=== PATIENT | female | born 1975 | race Caucasian/White ===

== ENCOUNTER → 2017-11-18 | Outpatient (CLI) | payer OTHER | LOC: CIMAGING 08:13 | PROVIDERS: ATTEND Family Medicine | DX: E05.90 Thyrotoxicosis, unspecified without thyrotoxic crisis or storm (principal) | CPT/HCPCS: 76536-PO ==

== ENCOUNTER 2019-03-06 20:58 | Emergency (ER) | payer BC, OTHER ==
[2019-03-06] MEDS ORDERED: ONDANSETRON 4 MG/2 ML VIAL ONE (21:18)
[2019-03-06] MEDS ORDERED: ONDANSETRON 4 MG/2 ML VIAL IVP ONE (21:21)
[2019-03-06] MEDS ORDERED: KETOROLAC 15 MG/1 ML SDV IVP ONE ×2 (21:24→21:43)
[2019-03-06] MEDS ORDERED: HYOSCYAMINE SULFATE 0.125 MG TAB PO ONE ×2 (21:26→22:17)
--- NOTE | 2019-03-06 21:29 | EDPHY ---
H & P Stated Complaint: bloating,nausea,abdominal pain for 2 days Source: Patient Exam Limitations: No limitations - Personal History LMP (Females 10-55): Unknown Current Tetanus Diphtheria and Acellular Pertussis (TDAP): Yes - Medical/Surgical History Hx Asthma: No Hx Chronic Respiratory Disease: No Hx Diabetes: No Hx Cardiac Disease: No Hx Renal Disease: No Hx Cirrhosis: No Hx Alcoholism: No Hx HIV/AIDS: No Hx Splenectomy or Spleen Trauma: No Other PMH: rm,endometriosis - Family History Significant Family History: No pertinent family hx - Social History Smoking Status: Never smoked Alcohol Use: Rarely Drug Use: None <González Chacon - Last Filed: 03/06/19 22:35> <Miah Ferraro - Last Filed: 03/06/19 23:38> Time Seen by Provider: 03/06/19 21:09 HPI/ROS: This patient reports gradual onset of abdominal pain over the past 24 hr that initially felt like was in upper belly but since migrated to the right lower quadrant. She describes it as a pressure sensation currently 8/10 intensity worse with movement and bumps in the road on the way here and with movement in general. She has not tried any analgesics for her pain. She notes no other exacerbating factors. She has not had this pain before. She has associated nausea. Her last meal was at 4:30 p.m. Her son drove her here for evaluation by private vehicle. ROS: Constitutional: No fevers. No other complaints HEENT: No URI symptoms or other complaints except otitis media 2 weeks ago that resolved with antibiotic. Patient does recall which antibiotic she was on. Currently no ear pain throat pain or other complaints Pulmonary: No shortness of breath. No cough. Cardiovascular: No chest pain or heart palpitations. GI: She reports mild abdominal distension associated with her symptoms. While she has mild back pain she does not have a sense that is radiating from her abdomen. She reports normal bowel movements. While she has nausea she has had no vomiting. : No urinary symptoms. No vaginal discharge. She is amenorrheic due to endometrial ablation was performed because of endometriosis. 10 point review of symptoms is performed and otherwise negative with exception of pertinent positives and negatives listed in HPI and ROS (González Chacon) - Medical/Surgical History PMH: Cholecystitis with cholecystectomy 5 years ago at [facility]. Exploratory laparotomy for abdominal pain with diagnosis of endometriosis at that time (González Chacon) - Physical Exam Exam: General Appearance: Pleasant 43-year-old female and mild distress due to pain and nausea. Eyes: Pupils equal and round no pallor or injection. ENT, Mouth: Mucous membranes moist. Respiratory: There are no retractions, lungs are clear to auscultation. Cardiovascular: Regular rate and rhythm. Gastrointestinal: Hyperactive bowel sounds. Positive exquisite right lower quadrant tenderness. No clear rebound tenderness. She does have positive Rovsing's. No significant upper belly tenderness at this point. No organomegaly is appreciated. She has a clean dry intact infraumbilical surgical scar. Back: No CVA tenderness Neurological: GCS 15 Skin: Diaphoretic Musculoskeletal: Neck is supple nontender. Extremities are symmetrical, full range of motion. Psychiatric: Mood and affect are normal DIFFERENTIAL DIAGNOSIS: After history and physical exam differential diagnosis was considered for appendicitis, ureteral stone, pyelonephritis, bowel obstruction, diverticulitis, neoplasm, gas cramps, constipation, (González Chacon) Constitutional: Initial Vital Signs Temperature (C) 36.9 C 03/06/19 21:11 Heart Rate 87 03/06/19 21:11 Respiratory Rate 16 03/06/19 21:11 Blood Pressure 127/80 H 03/06/19 21:11 O2 Sat (%) 94 03/06/19 21:11 O2 Delivery Mode Room Air Allergies/Adverse Reactions: codeine Allergy (Verified 03/06/19 21:10) Penicillins Allergy (Verified 03/06/19 21:10) Home Medications: Medication Instructions Recorded Cephalexin [Keflex] 500 mg PO TID #21 cap 03/06/19 Hyoscyamine Sulfate [Levsin, 0.125 - 0.25 mg SL Q6 PRN #20 tab 03/06/19 Hyomax-Sl 0.125 mg (*)] Ondansetron Odt [Zofran Odt] 4 - 8 mg PO Q4PRN PRN #4 tab 03/06/19 Medical Decision Making - Diagnostics Imaging: Discussed imaging studies w/ outside sales consultant Radiologist <González Chacon - Last Filed: 03/06/19 22:35> - Diagnostics Imaging: Discussed imaging studies w/ outside sales consultant Radiologist <Miah Ferraro - Last Filed: 03/06/19 23:38> - Diagnostics Imaging Results: Imaging Impressions Abdomen CT 03/06/19 21:24 Impression: 1. No evidence of acute appendicitis. 2. Normal bowel pattern. No evidence of obstruction or adynamic ileus. Minimal diverticulosis of the sigmoid colon. 3. No free fluid or localized intra-abdominal inflammatory process. 4. Bilateral nephrolithiasis. Findings discussed with Emergency Department physician, GONZÁLEZ CHACON at 03/06/2019 22:20. CT abdomen pelvis with IV contrast-no appendix visualized but no inflammatory changes in the right lower quadrant per Dr. Fenton, radiologist. Mild diverticulosis but no diverticulitis. No hydronephrosis or ureteral stones appreciated. Moderate gas but no evidence of early obstruction per Dr. Fenton , radiologist. I also reviewed these images myself. (González Chacon) ED Course/Re-evaluation: IV normal saline bolus, Zofran 4 mg IV with resolution of nausea Toradol 15 mg without improvement in pain Levsin 0.125 sublingual in addition with minimal improvement-still 7/10. An additional 50 mg of Toradol, 1 mg Dilaudid in 0.125 Levsin were then administered with partial relief. POC CBC and basic metabolic panel here are normal. POC urine dip reveals trace blood, and 1+ leukocytes. In my experience the 1+ leukocytes can translate to a few white cells per high-power field microscopy verses over 50. Given this variability will send this urinalysis to [facility] lab for urine micro - results currently pending. A urine is not performed given her endometrial ablation Discussion: Patient here with a presentation that was clinically concerning for potential appendicitis with the 1 exception exam the patient presented with very hyperactive bowel sounds. She also had some bloating that she complained of. We do not appreciate evidence of bowel obstruction or appendicitis on her imaging and no other significant abnormalities are noted. She may be having severe gas cramps from food intolerance or virus. Counseled regarding this. It is still possible that she could a very early obstruction without vomiting or characteristic radiologic findings. Given her improvement with treatment here will send her home with a trial of Levsin, ibuprofen, Tylenol and a light diet with plan to follow up with primary care physician and/or Gastroenterology. She understands need to return emergency department should she develop any worsening of symptoms despite the treatment plan. At 10:45 p.m. I spoke with the patient who reports still having 6 or 7/10 pain despite previous medications. I explained the option of observation admission and repeat examination in the morning. She is interested in another round of analgesics prior to that decision being made. Will give her a 1 mg Dilaudid dose with plan for disposition decision thereafter. I explained again no red flag findings currently but may warrant observation admission is still isn't getting relief from plan final dose of analgesics here. I also explained that if she is discharged home she will not receive opiate analgesics but rather above outlined plan Levsin and [id number] analgesics. I discussed this case with [facility] emergency physician who is familiar with patient's presentation, workup and current status. A follow- up to finalize disposition after monitoring her response to medication. (González Chacon) 11:30 p.m. the patient continues to have some pain. Her lab work, vital signs and imaging are all completely reassuring. I suspect that she may have passed a kidney stone based on the location of her symptoms and a small amount of blood in her urine. There was no stone seen in the ureter or hydronephrosis or hydroureter however she does have small stones in the kidneys themselves. We discussed this as possible cause for her pain. I again offered admission for observation versus discharge and follow-up 24 hr. She would prefer to go home and sleep in her own bed will return if her symptoms worsen. I agree that this is reasonable. Her son will drive her home. She is asking for stronger nausea medicine. Will treat with a small dose of Haldol. 11:40 p.m. the urine sent to the lab but [place] reveals white cells but not red cells. Will treat the patient with Rocephin for potential urinary tract infection. Otherwise her vitals in lab work look well. She is happy with this plan. She has hives to penicillin but has never had an adverse reaction to cephalosporins. (Miah Ferraro) - Data Points Laboratory Results: 03/06/19 03/06/19 23:01 22:00 POC Sodium 136 mEq/L mEq/L (135-145) POC Potassium 4.4 mEq/L mEq/L (3.3-5.0) POC Chloride 109.0 mEq/L mEq/L (97-110) POC Total CO2 30 mEq/L mEq/L (22-31) POC BUN 15 mg/dL mg/dL (7-23) POC Creatinine 1.2 mg/dL H mg/dL (0.6-1.0) POC Glucose 86 mg/dL mg/dL (70-100) POC Calcium 10.0 mg/dL mg/dL (8.5-10.4) POC Total Bilirubin 0.5 mg/dL mg/dL (0.1-1.4) POC AST 28 IU/L IU/L (14-46) POC ALT 32 IU/L IU/L (9-52) POC Alk Phosphatase 56 IU/L IU/L (38-126) POC Total Protein 7.3 g/dL g/dL (6.3-8.2) POC Albumin 3.8 g/dL g/dL (3.5-5.0) Urine RBC 1-3 /hpf /hpf (0-3) Urine WBC 3-5 /hpf H /hpf (0-3) Ur Epithelial Cells TRACE /lpf /lpf (NONE-1+) Medications Given: Discontinued Medications Haloperidol Lactate (Haldol Injection) 5 mg IVP EDNOW ONE Stop: 03/06/19 23:30 Last Admin: 03/06/19 23:33 Dose: 5 mg Hydromorphone HCl (Dilaudid) 1 mg IVP EDNOW ONE Stop: 03/06/19 22:06 Last Admin: 03/06/19 22:10 Dose: 1 mg Hydromorphone HCl (Dilaudid) 1 mg IVP EDNOW ONE Stop: 03/06/19 22:50 Last Admin: 03/06/19 22:56 Dose: 0.5 mg Hyoscyamine Sulfate (Levsin, Hyomax-Sl) 0.125 mg PO EDNOW ONE Stop: 03/06/19 21:27 Last Admin: 03/06/19 21:29 Dose: 0.125 mg Hyoscyamine Sulfate (Levsin, Hyomax-Sl) 0.125 mg PO EDNOW ONE Stop: 03/06/19 22:18 Last Admin: 03/06/19 22:26 Dose: 0.125 mg Sodium Chloride (Ns) 1,000 mls @ 0 mls/hr IV ONCE ONE; Wide Open PRN Reason: Protocol Stop: 03/06/19 21:36 Last Admin: 03/06/19 21:35 Dose: 1,000 mls Ketorolac Tromethamine (Toradol) 15 mg IVP EDNOW ONE Stop: 03/06/19 21:25 Last Admin: 03/06/19 21:29 Dose: 15 mg Ketorolac Tromethamine (Toradol) 15 mg IVP EDNOW ONE Stop: 03/06/19 21:44 Last Admin: 03/06/19 21:46 Dose: 15 mg Ondansetron HCl (Zofran) 4 mg IVP EDNOW ONE Stop: 03/06/19 21:22 Last Admin: 03/06/19 21:21 Dose: 4 mg Point of Care Test Results: CBC CBC Collection Date 03/06/19 CBC Collection Time 21:17 WBC 6.31 RBC 4.32 HGB 13.7 HCT 40.7 PLT 335 Neut # 2.73 Neut 43.3 LYMPH # 2.75 LYMPH 43.6 MCV 94.2 Chemistry 03/06/19 23:01 POC Sodium 136 mEq/L mEq/L (135-145) POC Potassium 4.4 mEq/L mEq/L (3.3-5.0) POC Chloride 109.0 mEq/L mEq/L (97-110) POC Total CO2 30 mEq/L mEq/L (22-31) POC BUN 15 mg/dL mg/dL (7-23) POC Creatinine 1.2 mg/dL H mg/dL (0.6-1.0) POC Glucose 86 mg/dL mg/dL (70-100) POC Calcium 10.0 mg/dL mg/dL (8.5-10.4) POC Total Bilirubin 0.5 mg/dL mg/dL (0.1-1.4) POC AST 28 IU/L IU/L (14-46) POC ALT 32 IU/L IU/L (9-52) POC Alk Phosphatase 56 IU/L IU/L (38-126) POC Total Protein 7.3 g/dL g/dL (6.3-8.2) POC Albumin 3.8 g/dL g/dL (3.5-5.0) Comprehensive Metabolic Panel CMP Collection Date 03/06/19 CMP Collection Time 23:15 Urine Dip Collection Date 03/06/19 Collection Time 22:00 Specific Violet (1.002-1.030) 1.020 PH (5.0-7.5) 7.5 Leukocytes (Negative) 1+ Nitrites (Negative) Negative Protein (Negative) Negative Glucose (Negative) Negative Ketones (Negative) Negative Urobilnogen (0.2-1.0 EU) 1.0 Bilirubin (Negative) Negative Blood (Negative) Trace Departure <González Chacon C - Last Filed: 03/06/19 22:35> <Miah Ferraro - Last Filed: 03/06/19 23:38> - Departure Disposition: Home, Routine, Self-Care Clinical Impression: Acute abdominal pain Urinary tract infection Qualifiers: Urinary tract infection type: site unspecified Hematuria presence: without hematuria Qualified Code(s): N39.0 - Urinary tract infection, site not specified Condition: Good Instructions: Abdominal Pain (ED), Urinary Tract Infection in Women (ED) Additional Instructions: Diagnosis: Acute abdominal pain Plan: Levsin, ibuprofen Tylenol for pain as needed Zofran for nausea if needed Follow up with your primary care physician and/or Gastroenterology for any ongoing symptoms. Return emergency department for any significant worsening such as onset of vomiting despite Zofran, unbearable pain despite medications or other concerns. Referrals: Mary Lou Sevilla [Primary Care Provider] - As per Instructions Prescriptions: Cephalexin [Keflex] 500 mg PO TID #21 cap Hyoscyamine Sulfate [Levsin, Hyomax-Sl 0.125 mg (*)] 0.125 - 0.25 mg SL Q6 PRN # 20 tab PRN Reason: abdominal cramping Ondansetron Odt [Zofran Odt] 4 - 8 mg PO Q4PRN PRN #4 tab PRN Reason: Vomiting
[2019-03-06] MEDS ORDERED: NS 1,000 ML IV ONE (21:35)
[2019-03-06] MEDS ORDERED: IOPAMIDOL (ISOVUE-300) 100 ML BTL ONE (21:45)
[2019-03-06] MEDS ORDERED: HYDROmorphONE/DILAUDID 2 MG/ML INJ IVP ONE ×2 (22:05→22:49)
[2019-03-06] MEDS ORDERED: HALOPERIDOL LACT 5 MG/ML INJ IVP ONE (23:29)
[2019-03-06] MEDS ORDERED: ONDANSETRON 4MG PREPACK#2 BTL TAKEHOME ONE (23:49)
[2019-03-07 00:30] VITALS: BP 116/74
== END 2019-03-07 00:25 | disposition home or self-care (01) ==
LOC: CED 20:58
DX: N39.0 Urinary tract infection, site not specified (principal); R10.31 Right lower quadrant pain; N20.0 Calculus of kidney; Z90.49 Acquired absence of other specified parts of digestive tract
CPT/HCPCS: 74177-PO; 80053-ER; 85025-QW-ER; 96365-ER; 96375-ER; 99285-ER; J0696; J1170; J1630; J1885; J2405; Q9967

== ENCOUNTER → 2019-03-22 | Outpatient (CLI) | payer BC | LOC: FIMAGING 07:58 | PROVIDERS: ATTEND Physician Assistant Medical | DX: K21.9 Gastro-esophageal reflux disease without esophagitis (principal) ==

== ENCOUNTER 2019-04-26 07:26 | Day surgery (SDC) | payer BC ==
[2019-04-26] MEDS ORDERED: LIDOCAINE 1% 2 ML INJ ID PRN (08:15)
[2019-04-26] MEDS ORDERED: LR 1,000 ML IV ONE (08:15)
[2019-04-26] MEDS ORDERED: LIDOCAINE 1% 2 ML INJ ONE (08:21)
--- NOTE | 2019-04-26 09:10 | PDANEPAE ---
ANE Past Medical History - Cardiovascular History Hx Hypertension: No Hx Arrhythmias: No Hx Chest Pain: No Hx Coronary Artery / Peripheral Vascular Disease: No Hx CHF / Valvular Disease: No Hx Palpitations: No - Pulmonary History Hx COPD: No Hx Asthma/Reactive Airway Disease: No Hx Recent Upper Respiratory Infection: No Hx Oxygen in Use at Home: No Hx Sleep Apnea: No Sleep Apnea Screening Result - Last Documented: Negative - Neurologic History Hx Cerebrovascular Accident: No Hx Seizures: No Hx Dementia: No - Endocrine History Hx Diabetes: No Endocrine History Comment: HYPERTHYROID DOES YEARLY CHECKS - Renal History Hx Renal Disorders: No - Liver History Hx Hepatic Disorders: No Hepatic History Comment: KAYLEE - Neurological & Psychiatric Hx Hx Neurological and Psychiatric Disorders: No - Cancer History Hx Cancer: No - Congenital Disorder History Hx Congenital Disorders: No - GI History Hx Gastrointestinal Disorders: Yes Gastrointestinal History Comment: INTERMITTENT ISSUES WITH NAUSEA. AND GI DISCOMFORT - Chronic Pain History Chronic Pain: Yes (GI) - Surgical History Prior Surgeries: KAYLEE 2013 AT [facility]. ENDOMETROSIS ANE Review of Systems Review of Systems: - Exercise capacity METS (RN): 4 METS ANE Patient History - Allergies Allergies/Adverse Reactions: Penicillins Allergy (Verified 04/26/19 08:27) Hives - Home Medications Home Medications: Jolessa 0.15 mg-0.03 mg Tablet HS 04/25/19 [Last Taken 04/25/19 22:00] Prilosec DAILY 04/25/19 [Last Taken 04/24/19] - NPO status NPO Since - Liquids (Date): 04/25/19 NPO Since - Liquids (Time): 18:00 NPO Since - Solids (Date): 04/25/19 NPO Since - Solids (Time): 18:00 - Smoking Hx Smoking Status: Never smoked ANE Labs/Vital Signs - Vital Signs Blood Pressure: 122/85 Heart Rate: 95 Respiratory Rate: 18 O2 Sat (%): 96 Height: 162.56 cm Weight: 58.06 kg ANE Physical Exam - Airway Neck exam: FROM Mallampati Score: Class 2 Mouth exam: normal dental/mouth exam - Pulmonary Pulmonary: no respiratory distress - Cardiovascular Cardiovascular: regular rate and rhythym - ASA Status ASA Status: II ANE Anesthesia Plan Anesthesia Plan: MAC Total IV Anesthesia: Yes
[2019-04-26] MEDS ORDERED: PROPOFOL/EMULSION 500 MG/50 ML BOTTLE IV ONE (09:25)
[2019-04-26] MEDS ORDERED: fentaNYL 100 MCG/2 ML INJ IVP PRN (09:47)
[2019-04-26] MEDS ORDERED: NALOXONE HCL 0.4 MG/ML INJ IVP PRN (09:47)
[2019-04-26] MEDS ORDERED: INDOMETHACIN 50 MG SUPP PR PRN (09:50)
--- NOTE | 2019-04-26 09:50 | PDGENHP ---
History & Physical Chief Complaint: abdominal pain History of Present Illness: 43 year old female presents for evaluaton of abdominal pain, nausea, and dyspepsia. Feels like her gallbladder symptoms according to her. Pertinent Past, Social, Family History: pMHx: Hyperthyroidism. PSughx: CCY Relevant Physical Exam: HEENT: anicteric. CV: RRR +s1s2. lungs: CTAB. Abd: soft, nt, + bs Cardiorespiratory Assessment: ASA 2
--- NOTE | 2019-04-26 09:57 | POSTANESTH ---
Post Anesthetic Evaluation Cardiovascular Status: Normal, Stable Respiratory Status: Normal, Stable Level of Consciousness/Mental Status: Can Participate in Eval Pain Control: Adequate, Prn Tx Ordered Nausea/Vomiting Control: Adequate, Prn Tx Ordered Complications Possibly Related to Anesthesia: None Noted
[2019-04-26] MEDS ORDERED: NS 500 ML IV SCH (10:00)
[2019-04-26] MEDS ORDERED: ONDANSETRON 4 MG/2 ML VIAL ONE ×2 (10:00→10:12)
[2019-04-26] MEDS: ONDANSETRON 4 MG/2 ML VIAL IVP PRN ×2 (10:01→10:11)
--- NOTE | 2019-04-26 10:14 | GIREPORT ---
[facility] Includes [facility] Surgical Services - Endoscopy Department Patient Name: Devorah Rosenberg Procedure Date: 04/26/2019 9:18 AM Patient Type: Outpatient Attending MD/ ER Physician: Sesar Peña MD Procedure: Upper EUS Indications: Abdominal pain in the right upper quadrant, Dyspepsia, Nausea Patient Profile: 43 year old female presents for evaluation of RUQ/epigastric abdominal pain, nausea, and dyspepsia. Providers: Sesar Peña MD Medicines: Monitored Anesthesia Care Complications: No immediate complications. Estimated blood loss: Minimal. Description of Procedure: After obtaining informed consent, the endoscope was passed under direct vision. Throughout the procedure, the patient's blood pressure, pulse, and oxygen saturations were monitored continuously. The Endoscope was intro duced through the mouth, and advanced to the second part of duodenum. The Endosonoscope was introduced through the mouth, and advanced to the sec ond part of duodenum. The upper EUS was accomplished without difficulty. Th e esophagus, stomach, and duodenum were visualized endosonographically. T he patient tolerated the procedure well. Findings: ENDOSCOPIC FINDING: : The examined esophagus was normal. A hiatal hernia was present. Patchy mildly erythematous mucosa was found in the gastric body and in the gastric antrum. Biopsies were taken with a cold forceps for histology. The examined duodenum was normal. Biopsies for histology were taken wit h a cold forceps for evaluation of celiac disease. ENDOSONOGRAPHIC FINDING: : There was no sign of significant endosonographic abnormality in the com mon bile duct. The maximum diameter of the duct was 5.5 mm. Pancreatic parenchymal abnormalities were noted in the entire pancreas. These consisted of hyperechoic foci. The pancreatic duct had a prominently branched endosonographic appearan ce and had hyperechoic alcala in the entire pancreas. There was no sign of significant endosonographic abnormality in the visualized portion of the liver. No masses were identified. No lymphadenopathy seen. Estimated Blood Loss: Estimated blood loss was minimal. Post Op Diagnosis: - Normal esophagus. - Hiatal hernia. - Erythematous mucosa in the gastric body and antrum. Biopsied. - Normal examined duodenum. Biopsied. - There was no sign of significant pathology in the common bile duct. - Pancreatic parenchymal abnormalities consisting of hyperechoic foci w ere noted in the entire pancreas. - The pancreatic duct had a prominently branched endosonographic appear ance and had hyperechoic alcala in the entire pancreas. - There was no evidence of significant pathology in the visualized port ion of the liver. - Etiology? No obvious cause of symptoms seen. Await biopsy results. St art a trial of dicyclomine. Needs to start a food diary Recommendation: - Discharge patient to home (with escort). - Advance diet as tolerated. - Continue present medications. - Return to GI office in 4 weeks. - Thank you for allowing me to participate in the care of your patient. Attending Participation: I personally performed the entire procedure. Sesar Peña MD Sesar Peña MD 04/26/2019 10:13:43 AM This report has been signed electronicallySesra Peña MD Number of Addenda: 0 Note Initiated On: 04/26/2019 9:18 AM [email or web address]
[2019-04-26] MEDS ORDERED: PROMETHAZINE HCL 25 MG/ML INJ ONE (10:45)
[2019-04-26] MEDS ORDERED: PROMETHAZINE HCL 25 MG/ML INJ IVP PRN (11:08)
[2019-04-26 11:34] VITALS: BP 124/69
== END 2019-04-26 12:09 | disposition home or self-care (01) ==
LOC: FSGY 07:26
PROVIDERS: ATTEND Internal Medicine Gastroenterology
DX: R10.13 Epigastric pain (principal); K29.50 Unspecified chronic gastritis without bleeding; K21.9 Gastro-esophageal reflux disease without esophagitis; K44.9 Diaphragmatic hernia without obstruction or gangrene; K58.9 Irritable bowel syndrome, unspecified
CPT/HCPCS: J2405; J2550; J2704